=== PATIENT | female | born 1945 | race Caucasian/White ===

== ENCOUNTER → 2020-07-22 | Outpatient (CLI) | payer OTHER ==
[2020-07-22 07:05] LABS: HEMOGLOBIN 12.1 gm/dl (12.3-15.3); RED BLOOD COUNT 4.31 M/UL (4.00-5.10); WHITE BLOOD COUNT 6.9 K/UL (4.5-11.0)
[2020-07-22 07:27] LABS: BUN/CREATININE RATIO 18 (0-10)
[2020-07-23 10:14] LABS: THYROXINE (T4) 7.5 ug/dL (4.5-12.0)
== END ==
LOC: LAB 06:25
PROVIDERS: Nurse Practitioner Family
DX: R53.82 Chronic fatigue, unspecified (principal); R14.0 Abdominal distension (gaseous); K59.00 Constipation, unspecified; Z13.220 Encounter for screening for lipoid disorders; R14.3 Flatulence
CPT/HCPCS: 36415; 74018; 80053; 81001; 84436; 84443; 84480; 85025

== ENCOUNTER → 2021-01-06 | Outpatient (CLI) | payer OTHER | LOC: EXRD 09:04 | DX: R19.00 Intra-abdominal and pelvic swelling, mass and lump, unspecified site (principal); R10.2 Pelvic and perineal pain; K80.20 Calculus of gallbladder without cholecystitis without obstruction | CPT/HCPCS: 76700 ==

== ENCOUNTER → 2021-01-13 | Outpatient (CLI) | payer OTHER | LOC: RAD 11:47 | DX: R19.00 Intra-abdominal and pelvic swelling, mass and lump, unspecified site (principal); K56.41 Fecal impaction | CPT/HCPCS: 74018 ==

== ENCOUNTER 2021-09-16 11:18 | Emergency (ER) | payer OTHER ==
[2021-09-16 11:59] LABS: HEMOGLOBIN 12.1 gm/dl (12.3-15.3); RED BLOOD COUNT 4.54 M/UL (4.00-5.10); WHITE BLOOD COUNT 7.1 K/UL (4.5-11.0)
[2021-09-16 12:23] LABS: BUN/CREATININE RATIO 19 (0-10)
== END 2021-09-16 19:10 | disposition home or self-care (01) ==
LOC: ER1 11:18
PROVIDERS: Nurse Practitioner
DX: I63.512 Cerebral infarction due to unspecified occlusion or stenosis of left middle cerebral artery (principal); R29.702 NIHSS score 2; V49.9XXA Car occupant (driver) (passenger) injured in unspecified traffic accident, initial encounter
CPT/HCPCS: 70450; 70496; 70498; 71045; 72125; 80053; 81001; 82550; 82553; 84484; 85025; 85610; 85730; 87086; 93005; 99285; Q9967